=== PATIENT | female | born 1980 | race Two or more races ===

== ENCOUNTER 2017-12-19 11:43 | Inpatient (IN) | payer BC ==
[2017-12-19 13:05] VITALS: BMI 22.2
--- NOTE | 2017-12-19 14:55 | HP ---
Admission ROS [facility] Chief Complaint: I want rehab for opiate and alcohol Allergies/Adverse Reactions: Allergies Allergy/AdvReac Type Severity Reaction Status Date / Time No Known Allergies Allergy Verified 12/19/17 14:51 History of Present Illness: 37 years old female with long history of opiate alcohol nicotine dependence completed detox regimen at [facility] today discharged to [facility] rehab, has hiv seizure hypertension since 2000 is admitted to rehab Exam Limitations: No Limitations - Ebola screening Have you traveled outside of the country in the last 21 days: No (N) Have you had contact with anyone from an Ebola affected area: No Have you been sick,other than usual withdrawal symptoms: No Do you have a fever: No - Review of Systems Constitutional: Loss of Appetite, Unintentional Wgt. Loss, Unexplained wgt Loss EENT: reports: Hearing Loss (right ear) Respiratory: reports: No Symptoms reported Cardiac: reports: No Symptoms Reported GI: reports: No Symptoms Reported : reports: No Symptoms Reported Musculoskeletal: reports: No Symptoms Reported Integumentary: reports: No Symptoms Reported Neuro: reports: Seizure (since child) Endocrine: reports: No Symptoms Reported Hematology: reports: No Symptoms Reported Psychiatric: reports: Judgement Intact, Orientated x3, Depressed Other Systems: Reviewed and Negative Patient History - Patient Medical History Hx Anemia: No Hx Asthma: Yes Hx Chronic Obstructive Pulmonary Disease (COPD): No Hx Cancer: No Hx Cardiac Disorders: No Hx Congestive Heart Failure: No Hx Hypertension: Yes Hx Hypercholesterolemia: No Hx Pacemaker: No HX Cerebrovascular Accident: No Hx Seizures: Yes Hx Dementia: No Hx Diabetes: No Hx Gastrointestinal Disorders: No Hx Liver Disease: No Hx Genitourinary Disorders: No Hx Sexually Transmitted Disorders: No Hx Renal Disease (ESRD): No Hx Thyroid Disease: No Hx Human Immunodeficiency Virus (HIV): Yes (2000) Hx Hepatitis C: Yes Hx Depression: No Hx Suicide Attempt: Yes (cut left arm age 18) Hx Bipolar Disorder: Yes Hx Schizophrenia: No - Patient Surgical History Past Surgical History: Yes Hx Neurologic Surgery: No Hx Cataract Extraction: No Hx Cardiac Surgery: No Hx Lung Surgery: No Hx Breast Surgery: No Hx Breast Biopsy: No Hx Abdominal Surgery: No Hx Appendectomy: No Hx Cholecystectomy: No Hx Genitourinary Surgery: No Hx Section: Yes (2000) Hx Orthopedic Surgery: Yes (left ankle 2004) Hx Hysterectomy: No Anesthesia Reaction: No - PPD History Previous Implant?: Yes Documented Results: Negative w/o proof Implanted On Prior [facility] Admission?: No PPD to be Administered?: Yes - Reproductive History Patient is a Female of Child Bearing Age (11 -55 yrs old): Yes Last Menstrual Period: 12/12/17 Patient : No - Smoking Cessation Smoking history: Current every day smoker Have you smoked in the past 12 months: Yes Aproximately how many cigarettes per day: 20 Cigars Per Day: 0 Hx Chewing Tobacco Use: No Initiated information on smoking cessation: Yes 'Breaking Loose' booklet given: 12/19/17 - Substance & Tx. History Hx Alcohol Use: Yes Hx Substance Use: Yes Substance Use Type: Alcohol, Heroin, Opiates Hx Substance Use Treatment: Yes (11/2017 [facility] detox) Family Disease History - Family Disease History Family Disease History: Diabetes: Father, Mother Admission Physical Exam [facility] - Vital Signs Vital Signs: Vital Signs - 24 hr 12/19/17 13:01 Temperature 97 F L Pulse Rate 78 Respiratory 20 Rate Blood Pressure 114/74 - Physical General Appearance: Yes: No Apparent Distress, Appropriately Dressed, Thin HEENTM: Yes: Hearing grossly Normal (deaf right ear), Normocephalic, Normal Voice Respiratory: Yes: Chest Non-Tender, Lungs Clear, Normal Breath Sounds, No Respiratory Distress, No Accessory Muscle Use Neck: Yes: Supple, Trachea in good position Breast: Yes: Breasts Symetrical, No Discharge Cardiology: Yes: Regular Rhythm, Regular Rate, S1, S2 Abdominal: Yes: Normal Bowel Sounds, Non Tender, Flat, Soft Genitourinary: Yes: Within Normal Limits Back: Yes: Normal Inspection Musculoskeletal: Yes: full range of Motion, Gait Steady Extremities: Yes: Normal Inspection, Normal Range of Motion, Non-Tender Neurological: Yes: Fully Oriented, Alert, Motor Strength 5/5, Normal Mood/Affect , Normal Response Integumentary: Yes: Warm Lymphatic: Yes: Within Normal Limits - Diagnostic (1) Alcohol dependence with uncomplicated withdrawal Current Visit: Yes Status: Acute (2) Opioid dependence with withdrawal Current Visit: Yes Status: Acute (3) HIV (human immunodeficiency virus infection) Current Visit: Yes Status: Chronic Comment: patient brought in ART medication for hiv (4) Weight loss Current Visit: Yes Status: Acute (5) Seizure Current Visit: Yes Status: Chronic (6) Hypertension Current Visit: Yes Status: Chronic Qualifiers: Hypertension type: essential hypertension Qualified Code(s): I10 - Essential (primary) hypertension (7) Asthma Current Visit: Yes Status: Chronic Qualifiers: Asthma severity: mild Asthma persistence: intermittent Asthma complication type: with status asthmaticus Qualified Code(s): J45.22 - Mild intermittent asthma with status asthmaticus (8) Hepatitis C Current Visit: Yes Status: Resolved Qualifiers: Viral hepatitis chronicity: carrier Qualified Code(s): B18.2 - Chronic viral hepatitis C (9) 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 Visit: Yes Status: Chronic Comment: no hearing aid Cleared for Admission [facility] - Detox or Rehab [facility] Level of Care: Observation Bed Detox Regimen/Protocol: Not Applicable Claeared for Rehab Admission: Yes [facility] Breath Alcohol Content Breath Alcohol Content: 0 Urine Pregancy Test - Result Urine Test Results: Negative- NO Line Present Urine Drug Screen - Control Is Test Valid: Yes - Results Drug Screen Negative: No Urine Drug Screen Results: LUDIVINA-Cocaine, BZO-Benzodiazepines, MTD-Methadone Inpatient Rehab Admission - Initial Determination Are CD services needed?: Yes Free of communicable disease: Yes Not in need of hospitalization: Yes - Rehab Admission Criteria Previous failed treatment: Yes Poor recovery environment: Yes Comorbidities: Yes Lacks judgement: No Patient is meeting Inpatient Rehab admission criteria:: Yes
[2017-12-19] MEDS ORDERED: P-EPHED 60MG/TRIPROLIDI 2.5MG TABLET PO PRN (15:04)
[2017-12-19] MEDS ORDERED: MAG HYDROX/AL HYDROX/SIMETH 30 ML UNIT-DOSE CUP PO PRN (15:04)
[2017-12-19] MEDS ORDERED: NICOTINE POLACRILEX 4 MG GUM BC PRN (15:04)
[2017-12-19] MEDS ORDERED: guaiFENesin/D-METHORPHAN HB 10 ML UNIT-DOSE CUPS PO PRN (15:04)
[2017-12-19] MEDS ORDERED: MAGNESIUM CITRATE 300 ML BOTTLE PO PRN (15:04)
[2017-12-19] MEDS ORDERED: LOPERAMIDE HCL 2 MG CAPSULE PO PRN (15:04)
[2017-12-19] MEDS ORDERED: IBUPROFEN 400 MG TABLET (FP) PO PRN (15:04)
[2017-12-19] MEDS ORDERED: MENTHOL/PHENOL 1 EACH UD MM PRN (15:04)
[2017-12-19] MEDS ORDERED: MAGNESIUM HYDROX 2400MG/30ML ORAL SUSPENSION 30 ML CUP PO PRN (15:04)
[2017-12-19] MEDS ORDERED: ALBUTEROL SO4 8 GM HFA INHALER IH PRN (15:20)
[2017-12-19] MEDS ORDERED: TUBERCULIN PPD 5 TU/0.1ML VIAL ID ONE (18:24)
[2017-12-19 21:39] LABS: URINE APPEARANCE SLCLOUDY; URINE BILIRUBIN NEGATIVE (<2.0 mg/dL); URINE COLOR YELLOW; URINE GLUCOSE (UA) 3+ (NEGATIVE); URINE KETONE NEGATIVE (NEGATIVE); URINE NITRITE NEGATIVE (NEGATIVE); URINE PROTEIN NEGATIVE (NEGATIVE); URINE UROBILINOGEN NEGATIVE mg/dL (0.2-1.0)
[2017-12-19 21:41] LABS: URINE LEUK ESTERASE 1+ (NEGATIVE)
[2017-12-19 21:45] LABS: EPI CELLS FEW /HPF (FEW)
[2017-12-19] MEDS: NICOTINE 21 MG/24 HOURS TOPICAL PATCH TD SCH (21:45)
[2017-12-19] MEDS: MELATONIN 5 MG TABLETS PO PRN (21:46)
[2017-12-19] MEDS: THIAMINE HCL 100 MG TABLET (FP) PO SCH (21:46)
[2017-12-19] MEDS: levETIRAcetam 500 MG TABLET (FP) PO SCH (21:48)
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
[2017-12-20] MEDS: levETIRAcetam 500 MG TABLET (FP) PO SCH ×2 (09:34→21:40)
[2017-12-20] MEDS: NICOTINE 21 MG/24 HOURS TOPICAL PATCH TD SCH (09:34)
[2017-12-20] MEDS: ASPIRIN COATED 81 MG TABLET.EC PO SCH (09:34)
[2017-12-20] MEDS: amLODIPine BESYLATE 10 MG TABLET (FP) PO SCH (09:34)
[2017-12-20] MEDS: PRENATAL VITAMINS W/ FOLIC ACID TABLET (FP) PO SCH (09:34)
[2017-12-20 09:37] LABS: HEMATOCRIT 39.2 % (32.4-45.2); HEMOGLOBIN 12.8 GM/dL (10.7-15.3); MCH 30.3 pg (25.7-33.7); MCHC 32.7 g/dl (32.0-36.0); MEAN CELL VOLUME 92.6 fl (80-96); MEAN PLT VOLUME 9.9 fl (7.5-11.1); PLATELET COUNT 293 K/MM3 (134-434); RBC 4.23 M/mm3 (3.60-5.2); RDW 16.6 % (11.6-15.6); WHITE BLOOD COUNT 3.6 K/mm3 (4.0-10.0)
[2017-12-20 10:36] LABS: ALBUMIN 3.4 g/dl (3.4-5.0); ANION GAP 7 (8-16); BLOOD UREA NITROGEN 16 mg/dL (7-18); CALCIUM 9.3 mg/dL (8.5-10.1); CHLORIDE 103 mmol/L (98-107); CO2 28 mmol/L (21-32); GLUCOSE,RANDOM 116 mg/dL (74-106); POTASSIUM 5.1 mmol/L (3.5-5.1); SODIUM 138 mmol/L (136-145)
[2017-12-20 10:41] LABS: ALK PHOS 74 U/L (45-117); BILIRUBIN,TOTAL 0.2 mg/dL (0.2-1.0); SGOT/AST 45 U/L (15-37); SGPT/ALT 42 U/L (12-78); TOT PROT 8.5 g/dl (6.4-8.2)
[2017-12-20] MEDS: ACETAMINOPHEN 325 MG TABLET (FP) PO PRN ×2 (13:49→20:21)
[2017-12-20] MEDS ORDERED: BENZOCAINE 10 % GEL TUBE MM PRN (13:55)
--- NOTE | 2017-12-20 13:56 | PN ---
[facility] Progress Note Note: Vital Signs Temperature 97.6 F 12/20/17 07:10 Pulse Rate 93 H 12/20/17 10:00 Respiratory Rate 16 12/20/17 10:00 Blood Pressure 125/87 12/20/17 10:00 O2 Sat by Pulse Oximetry (%) c/o of dental pain ibuprofen PRN anbesol PRN Patient to follow up with dentist upon d/c continue to monitor
--- NOTE | 2017-12-20 13:57 | EKG ---
Test Reason : Blood Pressure : / mmHG Vent. Rate : 071 BPM Atrial Rate : 071 BPM P-R Int : 144 ms QRS Dur : 084 ms QT Int : 412 ms P-R-T Axes : 072 095 073 degrees QTc Int : 447 ms NORMAL SINUS RHYTHM RIGHTWARD AXIS BORDERLINE ECG NO PREVIOUS ECGS AVAILABLE Confirmed by Ashok Giron MD ([id number]) on 12/20/2017 1:57:27 PM Referred By: Confirmed By:Ashok Giron MD
[2017-12-20] MEDS: traZODone HCL 50 MG TABLET (FP) PO SCH (21:40)
[2017-12-20] MEDS: THIAMINE HCL 100 MG TABLET (FP) PO SCH (21:40)
[2017-12-21] MEDS ORDERED: PT OWN MED DRAWER 7, Y5N ONE (10:25)
[2017-12-21] MEDS: ASPIRIN COATED 81 MG TABLET.EC PO SCH (10:25)
[2017-12-21] MEDS: levETIRAcetam 500 MG TABLET (FP) PO SCH ×2 (10:25→21:46)
[2017-12-21] MEDS: NICOTINE 21 MG/24 HOURS TOPICAL PATCH TD SCH (10:25)
[2017-12-21] MEDS: PRENATAL VITAMINS W/ FOLIC ACID TABLET (FP) PO SCH (10:25)
[2017-12-21] MEDS: amLODIPine BESYLATE 10 MG TABLET (FP) PO SCH (10:26)
[2017-12-21 14:48] LABS: URINE APPEARANCE CLOUDY; URINE BILIRUBIN NEGATIVE (<2.0 mg/dL); URINE COLOR AMBER; URINE GLUCOSE (UA) 1+ (NEGATIVE); URINE KETONE NEGATIVE (NEGATIVE); URINE NITRITE NEGATIVE (NEGATIVE); URINE UROBILINOGEN NEGATIVE mg/dL (0.2-1.0)
[2017-12-21 14:50] LABS: URINE LEUK ESTERASE 2+ (NEGATIVE); URINE PROTEIN 1+ (NEGATIVE)
[2017-12-21 15:02] LABS: EPI CELLS MANY /HPF (FEW); URINE MUCUS RARE; YEAST MANY
[2017-12-21] MEDS: MELATONIN 5 MG TABLETS PO PRN (21:46)
[2017-12-21] MEDS: traZODone HCL 50 MG TABLET (FP) PO SCH (21:47)
[2017-12-21] MEDS: THIAMINE HCL 100 MG TABLET (FP) PO SCH (21:47)
[2017-12-22] MEDS: levETIRAcetam 500 MG TABLET (FP) PO SCH ×2 (10:13→21:49)
[2017-12-22] MEDS: PRENATAL VITAMINS W/ FOLIC ACID TABLET (FP) PO SCH (10:13)
[2017-12-22] MEDS: NICOTINE 21 MG/24 HOURS TOPICAL PATCH TD SCH (10:13)
[2017-12-22] MEDS: ASPIRIN COATED 81 MG TABLET.EC PO SCH (10:13)
[2017-12-22] MEDS: amLODIPine BESYLATE 10 MG TABLET (FP) PO SCH (10:14)
--- NOTE | 2017-12-22 13:40 | PN ---
[facility] Progress Note Note: Vital Signs (72 hours) 12/19/17 12/20/17 12/20/17 22:17 00:30 03:30 Temperature 97.7 F Pulse Rate 91 H Respiratory 18 16 16 Rate Blood Pressure 130/85 12/20/17 12/20/17 12/21/17 07:10 10:00 00:30 Temperature 97.6 F Pulse Rate 78 93 H Respiratory 16 16 18 Rate Blood Pressure 95/61 125/87 12/21/17 12/21/17 12/21/17 03:30 07:15 09:47 Temperature 97.7 F Pulse Rate 85 102 H Respiratory 18 18 Rate Blood Pressure 109/73 85/58 12/21/17 12/22/17 12/22/17 13:00 07:19 09:18 Temperature 98.1 F Pulse Rate 97 H 98 H 108 H Respiratory 18 Rate Blood Pressure 96/65 87/56 86/58 Laboratory Last Values WBC 3.6 K/mm3 (4.0-10.0) L 12/20/17 06:00 RBC 4.23 M/mm3 (3.60-5.2) 12/20/17 06:00 Hgb 12.8 GM/dL (10.7-15.3) 12/20/17 06:00 Hct 39.2 % (32.4-45.2) 12/20/17 06:00 MCV 92.6 fl (80-96) 12/20/17 06:00 MCH 30.3 pg (25.7-33.7) 12/20/17 06:00 MCHC 32.7 g/dl (32.0-36.0) 12/20/17 06:00 RDW 16.6 % (11.6-15.6) H 12/20/17 06:00 Plt Count 293 K/MM3 (134-434) 12/20/17 06:00 MPV 9.9 fl (7.5-11.1) 12/20/17 06:00 Sodium 138 mmol/L (136-145) 12/20/17 06:00 Potassium 5.1 mmol/L (3.5-5.1) 12/20/17 06:00 Chloride 103 mmol/L (98-107) 12/20/17 06:00 Carbon Dioxide 28 mmol/L (21-32) 12/20/17 06:00 Anion Gap 7 (8-16) L 12/20/17 06:00 BUN 16 mg/dL (7-18) 12/20/17 06:00 Creatinine 1.0 mg/dL (0.55-1.02) 12/20/17 06:00 Creat Clearance w eGFR > 60 (>60) 12/20/17 06:00 Random Glucose 116 mg/dL (74-106) H 12/20/17 06:00 Hemoglobin A1c % 6.5 % (4.8-6.0) H 12/20/17 06:00 Calcium 9.3 mg/dL (8.5-10.1) 12/20/17 06:00 Total Bilirubin 0.2 mg/dL (0.2-1.0) 12/20/17 06:00 AST 45 U/L (15-37) H 12/20/17 06:00 ALT 42 U/L (12-78) 12/20/17 06:00 Alkaline Phosphatase 74 U/L (45-117) 12/20/17 06:00 Total Protein 8.5 g/dl (6.4-8.2) H 12/20/17 06:00 Albumin 3.4 g/dl (3.4-5.0) 12/20/17 06:00 Urine Color Jackelyn 12/21/17 13:15 Urine Appearance Cloudy 12/21/17 13:15 Urine pH 6.0 (5.0-8.0) 12/21/17 13:15 Ur Specific Banks 1.021 (1.001-1.035) 12/21/17 13:15 Urine Protein 1+ (NEGATIVE) H 12/21/17 13:15 Urine Glucose (UA) 1+ (NEGATIVE) H D 12/21/17 13:15 Urine Ketones Negative (NEGATIVE) 12/21/17 13:15 Urine Blood 3+ (NEGATIVE) H 12/21/17 13:15 Urine Nitrite Negative (NEGATIVE) 12/21/17 13:15 Urine Bilirubin Negative (<2.0 mg/dL) 12/21/17 13:15 Urine Urobilinogen Negative mg/dL (0.2-1.0) 12/21/17 13:15 Ur Leukocyte Esterase 2+ (NEGATIVE) H 12/21/17 13:15 Urine WBC (Auto) None /hpf (3-5) 12/21/17 13:15 Urine RBC (Auto) None /hpf (0-3) 12/21/17 13:15 Ur Epithelial Cells Many /HPF (FEW) 12/21/17 13:15 Urine Mucus Rare 12/21/17 13:15 Urine Yeast Many 12/21/17 13:15 RPR Titer Nonreactive (NONREACTIVE) 12/20/17 06:00 Low BP, patient no Norvasc 10 mg, dose adjusted to 5 mg qd effective 12/23/17 urine culture ordered increase fluids continue to monitor
[2017-12-22] MEDS: traZODone HCL 50 MG TABLET (FP) PO SCH (21:49)
[2017-12-22] MEDS: THIAMINE HCL 100 MG TABLET (FP) PO SCH (21:49)
[2017-12-23 07:22] VITALS: TEMP 98
[2017-12-23] MEDS ORDERED: PT OWN MED DRAWER 7, Y5N ONE (08:48)
[2017-12-23 09:11] VITALS: BP 93/62; PULSE 96
[2017-12-23] MEDS ORDERED: amLODIPine BESYLATE 5 MG TABLET (FP) PO SCH (10:00)
--- NOTE | 2017-12-23 10:03 | PN ---
Psychiatric Progress Note Vital Signs: Vital Signs Period Temp Pulse Resp BP Sys/Green Pulse Ox Last 24 Hr 98.0 F 84-99 16-17 85-108/51-74 Date of Session: 12/23/17 Chief Complaint:: Disharge visit HPI: Elaine addresed Alcohol,cocaine and opioid dependence comorbid with Substance induced mood/sleep disorder. ROS: HIV+,BA,HTN,Hep C,Seizure disorder. Current Medications: Active Medications Generic Name Dose Route Start Last Admin Trade Name Freq PRN Reason Stop Dose Admin Acetaminophen 650 mg 12/19/17 15:04 12/20/17 20:21 Tylenol - PO 650 mg Q4H PRN Administration FEVER Al Hydroxide/Mg Hydroxide 30 ml 12/19/17 15:04 Mylanta Oral Suspension - PO Q6H PRN DYSPEPSIA Albuterol Sulfate 2 puff 12/19/17 15:20 Ventolin Hfa Inhaler - IH Q4H PRN SHORT OF BREATH/WHEEZING Amlodipine Besylate 5 mg 12/23/17 10:00 Norvasc - PO DAILY CARLY Aspirin 81 mg 12/20/17 10:00 12/22/17 10:13 Ecotrin - PO 81 mg DAILY CARLY Administration Benzocaine 1 applic 12/20/17 13:55 Anbesol - MM Q2H PRN dentalgia Eucalyptus/Menthol/Phenol/Sorbitol 1 each 12/19/17 15:04 Cepastat Lozenge - MM Q4H PRN SORE THROAT Guaifenesin 10 ml 12/19/17 15:04 Robitussin Dm - PO Q6H PRN COUGH Levetiracetam 500 mg 12/19/17 22:00 12/22/17 21:49 Keppra - PO 500 mg BID CARLY Administration Loperamide HCl 4 mg 12/19/17 15:04 Imodium - PO Q6H PRN DIARRHEA Magnesium Citrate 300 ml 12/19/17 15:04 Citroma - PO Q48H PRN CONSTIPATION Magnesium Hydroxide 30 ml 12/19/17 15:04 Milk Of Magnesia - PO DAILY PRN CONSTIPATION Melatonin 5 mg 12/19/17 22:00 12/21/17 21:46 Melatonin PO 5 mg HS PRN Administration INSOMNIA Nicotine 21 mg 12/19/17 15:15 12/22/17 10:13 Nicoderm Patch - TD 21 mg DAILY CARLY Administration Nicotine Polacrilex 4 mg 12/19/17 15:04 Nicorette Gum - BC Q2H PRN NICOTINE REPLACEMENT RX Non-Formulary Medication 1 each 12/20/17 10:00 12/22/17 10:13 Elviteg/Cob/Emtri/Tenof Alafen [Genvoya Tablet] PO 1 each DAILY CARLY Administration Multivit/Folic Acid/Iron 1 tab 12/20/17 10:00 12/22/17 10:13 Vitamins ([facility]) - PO 1 tab DAILY CARLY Administration Pseudoephedrine/Triprolidine 1 combo 12/19/17 15:04 Actifed - PO TID PRN NASAL CONGESTION Thiamine HCl 100 mg 12/19/17 22:00 12/22/17 21:49 Vitamin B1 - PO 100 mg HS CARLY Administration Trazodone HCl 50 mg 12/20/17 22:00 12/22/17 21:49 Desyrel - PO 50 mg HS CARLY Administration Current Side Effect: No Lab tests ordered: No Lab tests reviewed: Yes Provider note:: patient decided to sign out today despite our strong recommendations to complete this treatment.patient is high risk for relapse.She continues to find that trazodone 50 mg po hs helps to reduce sleeping difficulties.script provided for 30 days supply. Patient discharged AMA. Supportive therapy provided focusing on relapse prevention including coping skills,support utilization to maintain recovery.Patient will continue to address her issues on outpatient basis. Total face to face time:: 25 Mental Status Exam - Mental Status Exam Alert and Oriented to: Time, Place, Person Cognitive Function: Grossly Intact Patient Appearance: Unkempt Mood: Anxious Affect: Labile Patient Behavior: Distractible, Resitive to Care Speech Pattern: Clear Voice Loudness: Normal Thought Process: Goal Oriented Thought Disorder: Being Controlled Hallucinations: Denies Suicidal Ideation: Denies Homicidal Ideation: Denies Insight/Judgement: Poor Sleep: Fair Appetite: Good Muscle strength/Tone: Normal Gait/Station: Normal
== END 2017-12-23 09:40 | disposition home or self-care (01) | DRG 772 ==
LOC: YASAS 11:43 → Y3E 15:52
PROVIDERS: ADMIT Psychiatry & Neurology Psychiatry; ATTEND Psychiatry & Neurology Psychiatry
PROC: HZ42ZZZ Group Counseling for Substance Abuse Treatment, Cognitive-Behavioral (ICD-10-PCS; principal; 2017-12-19)
DX: F11.20 Opioid dependence, uncomplicated (principal); F10.20 Alcohol dependence, uncomplicated; F14.20 Cocaine dependence, uncomplicated; F17.210 Nicotine dependence, cigarettes, uncomplicated; F25.9 Schizoaffective disorder, unspecified; F43.10 Post-traumatic stress disorder, unspecified; F19.24 Other psychoactive substance dependence with psychoactive substance-induced mood disorder; F19.282 Other psychoactive substance dependence with psychoactive substance-induced sleep disorder; I10 Essential (primary) hypertension; J45.22 Mild intermittent asthma with status asthmaticus; B18.2 Chronic viral hepatitis C; G40.909 Epilepsy, unspecified, not intractable, without status epilepticus; Z21 Asymptomatic human immunodeficiency virus [HIV] infection status; R63.4 Abnormal weight loss; Z68.22 Body mass index [BMI] 22.0-22.9, adult; Z91.5 Personal history of self-harm; Z59.0 Homelessness
CPT/HCPCS: 36415; 80053; 81003; 81015; 83036; 85027; 86593; 87086; 93005; 93010